=== PATIENT | female | born 1990 | race Caucasian/White ===

== ENCOUNTER 2022-08-19 01:57 | Emergency (ER) | payer MEDICAID, OTHER ==
[~2022-08-19] VITALS: Ht 172.7 cm; Wt 95.0 kg
[~2022-08-19 01:57] MED LIST: HYDR-4383 PO; NO HOME MEDS
[2022-08-19] MEDS ORDERED: normal saline 1000ML IV soln IVB ONE (02:05)
[2022-08-19 02:45] LABS: BASOPHILS # (AUTO) 0.1 X10'3 (0-0.2); BASOPHILS % (AUTO) 0.9 % (0-1); EOSINOPHILS # (AUTO) 0.2 X10'3 (0-0.9); EOSINOPHILS % (AUTO) 3.1 % (0-6); HEMATOCRIT 32.6 % (35.0-45.0); LYMPHOCYTES # (AUTO) 2.8 X10'3 (1.1-4.8); LYMPHOCYTES % (AUTO) 46.3 % (21-51); MEAN CORPUSCULAR HEMOGLOBIN 30.3 PG (27.0-31.0); MEAN CORPUSCULAR HGB CONC 33.7 g/dL (33.0-36.5); MEAN CORPUSCULAR VOLUME 89.8 FL (78-98); MEAN PLATELET VOLUME 9.3 FL (7.4-10.4); MONOCYTES # (AUTO) 0.5 X10'3 (0-0.9); MONOCYTES % (AUTO) 8.2 % (2-12); NEUTROPHILS # (AUTO) 2.5 X10'3 (1.8-7.7); NEUTROPHILS % (AUTO) 41.5 % (42-75); PLATELET COUNT 232 X10'3 (140-440); RED BLOOD COUNT 3.63 X10'6 (4.20-5.60); RED CELL DISTRIBUTION WIDTH 15.1 % (11.5-14.5); WHITE BLOOD COUNT 6.1 X10'3 (4.5-11.0)
[2022-08-19 03:43] LABS: OSMOLALITY 298 MOSM/K (280-300)
[2022-08-19 04:22] LABS: ALANINE AMINOTRANSFERASE 19 U/L (12-78); ALBUMIN 3.4 G/DL (3.4-5.0); ALBUMIN/GLOBULIN RATIO 1.1 (1.1-1.5); ALKALINE PHOSPHATASE 74 IU/L (46-116); ANION GAP 12 (8-16); ASPARTATE AMINO TRANSFERASE 15 U/L (10-37); BILIRUBIN,TOTAL 0.1 MG/DL (0.1-1.0); BLOOD UREA NITROGEN 9 MG/DL (7-18); BUN/CREATININE RATIO 15.8 (6.6-38.0); CALCIUM 8.1 MG/DL (8.5-10.1); CHLORIDE 107 MMOL/L (99-107); CREATININE 0.57 MG/DL (0.40-0.90); ETHANOL < 0.010 GM/DL (0.0-0.010); GLUCOSE 90 MG/DL (70-104); SODIUM 143 MMOL/L (135-145); TOTAL CARBON DIOXIDE 24.5 MMOL/L (24-32); TOTAL PROTEIN 6.6 G/DL (6.4-8.2); eGFR > 90 ML/MIN
[2022-08-19 04:24] LABS: ACETAMINOPHEN < 2.0 UG/ML (10-30)
--- NOTE | 2022-08-19 04:24 | NUR ---
ANA M (Dad): [phone] LISA (Aunt): [phone]
[2022-08-19] MEDS ORDERED: potassium Cl 20 mEq SR tablet PO STA (04:29)
[2022-08-19 05:53] LABS: URINE HCG NEGATIVE (NEG)
[2022-08-19 06:04] LABS: URINE AMPHETAMINE SCREEN POSITIVE (Neg); URINE BARBITUATE SCREEN NEGATIVE (Neg); URINE BENZODIAZEPINES SCREEN POSITIVE (Neg); URINE CANNABINOID SCREEN POSITIVE (Neg); URINE COCAINE SCREEN NEGATIVE (Neg); URINE METHADONE SCREEN NEGATIVE (Neg); URINE OPIATE SCREEN NEGATIVE (Neg); URINE PHENCYCLIDINE SCREEN NEGATIVE (Neg)
--- NOTE | 2022-08-19 11:12 | NUR ---
PT AWAKE AND ALERT, EMOTIONAL ABOUT BEING ON A HOLD AND HAVING TO STAY AT HOSPITAL. FATHER AT BEDSIDE.
--- NOTE | 2022-08-19 13:20 | NUR ---
[facility] instructional support assistant Krista at bedside talking with pt.
[2022-08-19 14:27] VITALS: BP 117/76
== END 2022-08-19 14:38 | disposition home or self-care (01) ==
LOC: ER 01:58
DX: R45.851 Suicidal ideations (principal); Z20.822 Contact with and (suspected) exposure to COVID-19; F19.10 Other psychoactive substance abuse, uncomplicated; E87.6 Hypokalemia; F31.9 Bipolar disorder, unspecified; Z56.0 Unemployment, unspecified; Z79.899 Other long term (current) drug therapy
CPT/HCPCS: 36415; 71045; 80053; 80305; 80320; 80329; 81025; 83930; 85025; 87502; 87503; 87811; 93005; 96360; 99285; J7030

== ENCOUNTER 2024-05-12 20:57 | Emergency (ER) | payer BC, MEDICAID, OTHER ==
[~2024-05-12] VITALS: Ht 167.6 cm; Wt 84.0 kg
[2024-05-12] MEDS ORDERED: ACET1TAB96 PO (21:56)
[2024-05-12] MEDS ORDERED: CLIN-97 PO (21:56)
[2024-05-12] MEDS: CefTRIAXone 1000mg IM Kit (w/lidocaine diluent) IM ONE (22:28)
[2024-05-12 22:35] VITALS: BP 135/92; PULSE 92; RESP 16; TEMP 99.2; O2SAT 100
== END 2024-05-12 22:37 | disposition home or self-care (01) ==
LOC: ER 20:57
DX: K04.7 Periapical abscess without sinus (principal); F32.A Depression, unspecified; Z79.899 Other long term (current) drug therapy
CPT/HCPCS: 96372; 99283; J0696

== ENCOUNTER 2025-02-15 14:21 | Emergency (ER) | payer BC ==
[~2025-02-15] VITALS: Ht 167.6 cm; Wt 86.4 kg
[~2025-02-15 14:21] MED LIST changes: +CLIN-97 PO
[2025-02-15 14:34] VITALS: BP 145/88; PULSE 99; RESP 17; TEMP 98; O2SAT 100
[2025-02-15] MEDS ORDERED: CLIN300C63 PO (14:49)
--- NOTE | 2025-02-15 14:49 | Physician Documentation ---
HPI ~ General Chief Complaint: Tooth Problem Stated Complaint: FACE SWOLLEN Time Seen by MD: 14:41 OK to notify your PCP?: Yes Primary Medical Doctor: none Source: patient Mode of Arrival: POV Exam Limitations: no limitations History of Present Illness HPI Comment 34-year-old female presents with right lower incisor pain and facial swelling that started this morning. She does have a dental appointment in 2 days. Not currently taking any antibiotics. Medication Reconciliation Allergies: Coded Allergies: No Known Allergies (Unverified , 05/12/24) Scheduled Clindamycin HCL* (Clindamycin HCL*), 1 CAP PO Q6H Scheduled PRN Hydrocodone/Acetaminophen ([place] 5-325 Tablet), 1 TABLET PO TID PRN for pain Miscellaneous Medications Home Med List (No Home Medications), (Reported) Past Medical History Past Medical History: Bronchitis, Bipolar, Depression Past Surgical History: no surgical history Other Past Family History: NONE Alcohol Use: Occasionally Drug Use: none Occupation: unemployed Review of Systems All Other Systems at this time: Reviewed and Negative Physical Exam Vital Signs: RN Vital Signs have been reviewed: Yes, Temperature: 98.0, Heart Rate: 99, Respiratory Rate: 17, BP: 145/88, Pulse Oximetry: 100, Weight: 86.360 Oxygen Flow Rate: 0 Pulse Oximetry Reflects: adequate oxygenation Physical Exam General: Alert, no distress. HEENT: No injection, moist mucous membranes. Neck: Full range of motion. Respiratory: No respiratory distress, equal chest rise and fall. Chest: No accessory muscle use. Cardiovascular: Regular rate and rhythm. Gastrointestinal: Nondistended. Extremities: Normal range of motion, no deformity. Neurologic: Oriented x4. Psychiatric: Normal mood and affect. Skin: Normal color, warm and dry. Mouth/Throat: dental tenderness Mouth/Throat tooth 25 and 26 Palate: normal inspection Teeth/Gums: gingiva redness, gingiva swelling Face: swelling Head: normal inspection Progress Results/Orders Reviewed/noted all lab results: Yes Results/Orders Vital Signs 02/15/25 14:34 Temp 98.0 Pulse 99 Resp 17 B/P (MAP) 145/88 Pulse Ox 100 O2 Flow Rate 0 Medical Decision Making Findings 34-year-old female presents with tooth pain which is tender and has gingival redness. She is also having some facial swelling on the same side. She has an upcoming dental appointment in the next 2 days. She has been educated to continue with that dental appointment. I started her on a course of clindamycin. She can take Tylenol and ibuprofen for pain relief. She should return back here for any new or worsening symptoms. Differential Dx:Considerations: Include: Facial Cellulitis, Peridontal abscess, Tooth Fracture, Tooth subluxation Departure Disposition: 01 HOME / SELF CARE / HOMELESS Impression: Primary Impression: Dental abscess Condition: Stable Discharge Instructions: Dental Abscess Additional Instructions: Please take all antibiotics as prescribed and continue with your dental appointment in the next 2 days. Use Tylenol and/or ibuprofen for pain relief and return back here for any new or worsening symptoms. Referrals: NO PRIMARY CARE PROVIDER (PCP) Prescriptions Clindamycin HCl (Clindamycin HCl) 300 Mg Capsule 1 CAP PO Q8H for 10 Days, #30 CAP Prov: KIRTI ALLEN 02/15/25 Education Educated: Patient Educated regarding: diagnosis, treatment, prognosis, need for follow up Additional Comment Medical Screen Exam This patient recieved a medical screening examination. After reviewing the individual's medical complaints with presenting symptoms and performing an appropriate physical examination, it was determined that no immediate life- threatening emergency medical condition is present. This individual is also not a women having contractions. Signature Scribe Signature: . Attestation: Scribed for Kirti Allen by Kirti Chawla NP . 02/15/25 14:50 KIRTI ALLEN Feb 15, 2025 14:49
== END 2025-02-15 14:53 | disposition home or self-care (01) ==
LOC: ER 14:21
DX: K04.7 Periapical abscess without sinus (principal); F32.A Depression, unspecified
CPT/HCPCS: 99283